=== PATIENT | male | born 1970 | race Caucasian/White ===

== ENCOUNTER 2017-07-30 03:21 | Emergency (ER) | payer OTHER ==
[~2017-07-30] VITALS: Ht 188 cm; Wt 142.9 kg
[~2017-07-30 03:21] MED LIST: ALPRAZOLAM PO; BACTRIM DS TAB1 EACH PO; CIPROFLOXACIN500 M1 PO; DOXYCYCLINE 10100 MG PO; LEVOTHYROXIN0.025 MG PO; LEVOXYL150 MCG PO; LITHIUM CARBON300 M3 PO; NORCO 5-325 TA1 EACH PO; PROZAC 10 MG CA10 M1 PO; SEROQUEL200 MG PO
[2017-07-30] MEDS ORDERED: METFORMIN HCL500 MG PO (03:27)
[2017-07-30] MEDS ORDERED: LEVEMIR SUBQ (03:27)
[2017-07-30] MEDS ORDERED: [UNRECOGNIZED DRUG - OTHER] PO (03:28)
[2017-07-30] MEDS ORDERED: OSELB75 PO (04:22)
== END 2017-07-30 04:30 | disposition home or self-care (01) ==
LOC: ER 03:21
DX: J11.1 Influenza due to unidentified influenza virus with other respiratory manifestations (principal); E11.9 Type 2 diabetes mellitus without complications; E03.9 Hypothyroidism, unspecified; F32.9 Major depressive disorder, single episode, unspecified